=== PATIENT | male | born 1995 | race Caucasian/White ===

== ENCOUNTER 2020-08-19 00:28 | Emergency (ER) | payer OTHER ==
[2020-08-19] MEDS ORDERED: ZOFRAN ODT 4 MG4 MG SL (03:20)
[2020-08-19] MEDS ORDERED: IBUPROFEN800 MG PO (03:20)
== END 2020-08-19 03:28 | disposition home or self-care (01) ==
LOC: ER1 00:28
DX: B34.9 Viral infection, unspecified (principal); F17.210 Nicotine dependence, cigarettes, uncomplicated; Z20.822 Contact with and (suspected) exposure to COVID-19
CPT/HCPCS: 0240U; 96374; 96375; 99283; J1885; J2405